=== PATIENT | female | born 1960 | race Caucasian/White ===

== ENCOUNTER 2020-06-10 22:44 | Emergency (ER) | payer MEDICARE, OTHER ==
[~2020-06-10] VITALS: Ht 152.4 cm; Wt 65.9 kg
[2020-06-10] MEDS ORDERED: ENOXAPARIN 100MG/ML SYR SUBCUT ONE (23:45)
[2020-06-11 00:02] LABS: HEMATOCRIT. 39.8 % (36.0-48.0); HEMOGLOBIN. 12.9 g/dL (12.0-16.0); MEAN CORPUSCULAR HEMOGLOBIN 27.2 pg (28.0-32.0); MEAN CORPUSCULAR VOLUME 84.3 fL (81.0-99.0); RED BLOOD CELL COUNT 4.73 mill/uL (4.2-5.4)
[2020-06-11 00:07] LABS: CHLORIDE 111 mEq/L (98-107)
[2020-06-11] MEDS ORDERED: IOHEXOL-350 100 ML BOTTLE ONE (01:27)
[2020-06-11 01:39] LABS: PLATELET 66 x1000/uL (130-400)
[2020-06-11 01:40] LABS: MEAN PLATELET VOLUME 11.9 fl (7.4-10.4)
[2020-06-11 01:59] LABS: D-DIMER 1.55 mg/L FEU (<0.50); INR 1.1; PARTIAL THROMBOPLASTIN TIME 27.1 sec (23.4-31.0)
[2020-06-11 02:26] VITALS: BP 101/71
[2020-06-11 07:32] LABS: PLATELET ESTIMATE DECREASED
== END 2020-06-11 02:26 | disposition home or self-care (01) ==
LOC: ER 23:52
DX: I48.91 Unspecified atrial fibrillation (principal); D69.6 Thrombocytopenia, unspecified; I50.9 Heart failure, unspecified; Z86.73 Personal history of transient ischemic attack (TIA), and cerebral infarction without residual deficits; Z95.0 Presence of cardiac pacemaker; Z86.711 Personal history of pulmonary embolism; Z79.01 Long term (current) use of anticoagulants
CPT/HCPCS: 36415; 71045; 71275; 80053; 83880; 84484; 85025; 85379; 85610; 85730; 93005; 99285; J1650; Q9967